=== PATIENT | male | born 1980 | race Two or more races ===

== ENCOUNTER 2016-04-06 23:45 | Emergency (ER) | payer MEDICAID ==
[~2016-04-06] VITALS: Ht 175.3 cm; Wt 120.2 kg
[2016-04-06 23:54] VITALS: BP 171/107
[2016-04-07 00:54] LABS: Albumin 3.5 g/dL (3.4-5.0); BUN/Creatinine Ratio 8.9; Calcium 8.2 mg/dL (8.5-10.1); Magnesium 2.2 mg/dL (1.6-2.6); Potassium 3.5 mmol/L (3.5-5.1)
[2016-04-07 00:57] LABS: Bilirubin, Total 0.4 mg/dL (0.2-1.0); Total Protein 7.1 g/dL (6.4-8.2)
[2016-04-07 01:00] LABS: Basophils # (auto) 0.3 uL; Basophils % (auto) 2.2 % (0.0-2.0); Eosinophils # (auto) 0.3 uL; Eosinophils % (auto) 2.3 % (0.0-7.0); Hemoglobin 14.7 g/dL (13.5-17.5); Lymphocytes # (auto) 3.9 uL; Mean Corpuscular Hemoglobin 29.5 pg (28.0-32.0); Mean Corpuscular Hgb Conc. 32.7 g/dL (32.0-36.0); Mean Corpuscular Volume 90.5 fL (80.0-100.0); Monocytes % (auto) 7.8 % (0.0-12.0); Neutrophils # (auto) 7.4 uL; Neutrophils % (auto) 57.7 % (37.0-80.0); Platelet Count (auto) 232 10^3/uL (140-450); Red Cell Distribution Width 12.5 % (11.6-16.0); White Blood Cell 12.9 10^3/uL (4.4-10.8)
[2016-04-07 01:24] LABS: INR 1.04 (0.9-1.15); Partial Thromboplastin Time 24.6 sec (22.64-33.71); Prothrombin Time 10.7 sec (9.37-12.3)
[2016-04-07 01:30] LABS: B-Type Natriuretic Peptide 4.94 pg/mL (0-100)
== END 2016-04-07 04:31 | disposition left against medical advice (07) ==
LOC: EDBD 23:45 → ER 23:55
DX: R07.9 Chest pain, unspecified (principal); S51.002A Unspecified open wound of left elbow, initial encounter; R45.851 Suicidal ideations; Z53.21 Procedure and treatment not carried out due to patient leaving prior to being seen by health care provider; R79.1 Abnormal coagulation profile
CPT/HCPCS: 36415; 80053; 83735; 83880; 84443; 84484; 85025; 85379; 85610; 85730; G0434; 93005